=== PATIENT | female | born 1940 | race Caucasian/White ===

== ENCOUNTER 2022-09-14 09:44 | Outpatient (CLI) | payer MEDICARE | END 2022-09-14 09:45 | disposition home or self-care (01) | LOC: NAV CT 09:44 | PROVIDERS: ATTEND Neurological Surgery | DX: S06.5X0D Traumatic subdural hemorrhage without loss of consciousness, subsequent encounter (principal) | CPT/HCPCS: 70450 ==

== ENCOUNTER 2022-10-26 11:02 | Outpatient (CLI) | payer MEDICARE | END 2022-10-26 11:03 | disposition home or self-care (01) | LOC: NAV CT 11:02 | PROVIDERS: ATTEND Neurological Surgery | DX: S06.5X0D Traumatic subdural hemorrhage without loss of consciousness, subsequent encounter (principal) | CPT/HCPCS: 70450 ==